=== PATIENT | male | born 1935 | race Two or more races ===

== ENCOUNTER 2025-01-24 12:56 | Outpatient (CLI) | payer OTHER | END 2025-01-24 12:59 | disposition home or self-care (01) | LOC: NUCLEAR 12:56 | PROVIDERS: ATTEND Psychiatry & Neurology Clinical Neurophysiology | DX: G30.1 Alzheimer's disease with late onset (principal); F01.50 Vascular dementia, unspecified severity, without behavioral disturbance, psychotic disturbance, mood disturbance, and anxiety | CPT/HCPCS: 78803; A9557 ==